=== PATIENT | female | born 1965 | race Caucasian/White ===

== ENCOUNTER 2023-07-02 21:16 | Emergency (ER) | payer MEDICARE, SELFPAY ==
[2023-07-02 21:17] VITALS: BP 129/100; PULSE 157; RESP 18; TEMP 36.9; O2SAT 96; BMI 29.1
[2023-07-02] MEDS: ONDANSETRON 4 MG RAPDIS TABLET SL (21:30)
[2023-07-02] MEDS: LORAZEPAM 1 MG TABLET PO ×2 (21:30→21:43)
--- NOTE | 2023-07-02 21:45 | ED.ANXIETY1 ---
HPI - Anxiety General Chief Complaint: Anxiety Stated Complaint: ANXIETY/SITUATIONAL Time Seen by Provider: 07/02/23 21:23 Source: patient Mode of arrival: walk-in Limitations: no limitations History of Present Illness HPI narrative: 57-year-old female presents with a chief complaint of acute anxiety. Just prior to arrival patient had overdosed and . She is crying. She needs something for her nerves. Family members are with her. She has no suicidal homicidal ideation. Related Data Home Medications Medication Instructions Recorded Confirmed amlodipine 5 mg tablet 5 mg PO DAILY 07/02/23 07/02/23 duloxetine 20 mg capsule,delayed 20 mg PO DAILY 07/02/23 07/02/23 release estradiol 1 mg tablet 1 mg PO DAILY 07/02/23 07/02/23 lamotrigine 200 mg tablet 200 mg PO BID 07/02/23 07/02/23 losartan 100 mg tablet 100 mg PO DAILY 07/02/23 07/02/23 phenazopyridine 200 mg tablet 200 mg PO DAILY 07/02/23 07/02/23 quetiapine 100 mg tablet 100 mg PO DAILY 07/02/23 07/02/23 rosuvastatin 10 mg tablet 10 mg PO DAILY 07/02/23 07/02/23 Previous Rx's Medication Instructions Recorded lorazepam 1 mg tablet (Ativan) 1 mg PO Q8H PRN anxiety #14 tabs 07/02/23 ondansetron 4 mg disintegrating 4 mg PO Q8H 3 days #9 tabs 07/02/23 tablet Allergies Allergy/AdvReac Type Severity Reaction Status Date / Time No Known Drug Allergies Allergy Verified 07/02/23 21:24 Review of Systems ROS Narrative All Systems are negative except as noted/marked.All systems reviewed and otherwise negative Exam Narrative Exam Narrative: Nurses note and vital signs reviewed and patient is not hypoxic. General: The patient appears distressed and crying Skin: Warm, dry, no pallor noted. There is no rash noted. Head: Normocephalic, atraumatic Eye: Normal conjunctiva, no drainage, EOMI. PERRL Ears, Nose, Mouth, and Throat: oral mucosa is moist. Nares patent. Mouth without vesicles. Ear canals patent. Tm's without Erythema Cardiovascular: Regular Rate and Rhythm Respiratory: Patient is in no distress, no accessory muscle use, lungs are clear to auscultation, no wheezing, rales or rhonchi Musculoskeletal: The patient has no evidence of calf tenderness, no pitting edema, symmetrical pulses noted bilaterally Neurological: A&O x4, normal speech Psychiatric: Cooperative, complete thoughts , denies suicide or homicide ideation Constitutional Vital Signs, click to edit/add: Last Vital Signs Temp 98.5 F 07/02/23 21:17 Pulse 157 H 07/02/23 21:17 Resp 18 07/02/23 21:17 BP 129/100 H 07/02/23 21:17 Pulse Ox 96 07/02/23 21:17 O2 Del Method Room Air 07/02/23 21:17 Course Vital Signs Vital signs: Vital Signs Temperature 98.5 F 07/02/23 21:17 Pulse Rate 157 H 07/02/23 21:17 Respiratory Rate 18 07/02/23 21:17 Blood Pressure 129/100 H 07/02/23 21:17 Pulse Oximetry 96 07/02/23 21:17 Oxygen Delivery Method Room Air 07/02/23 21:17 Temperature 98.5 F 07/02/23 21:17 Pulse Rate 157 H 07/02/23 21:17 Respiratory Rate 18 07/02/23 21:17 Blood Pressure 129/100 H 07/02/23 21:17 Pulse Oximetry 96 07/02/23 21:17 Oxygen Delivery Method Room Air 07/02/23 21:17 MDM - Anxiety Medical Records Attestation: I reviewed the patient's medical records. Medical records narrative: presented to the emergency room with acute anxiety. She just found out prior to arrival with her son who from an overdose. Medicated here with Zofran and one Ativan. Discharge home with Ativan to go to [facility]. Patient was also given a Transfer To hotline. She is fully supportive home and wishes to be home with her family. She is not suicidal or homicidal Discharge Plan Discharge Chief Complaint: Anxiety Clinical Impression: Acute anxiety Patient Disposition: Home, Self-Care Time of Disposition Decision: 21:36 Condition: Good Prescriptions / Home Meds: New lorazepam [Ativan] 1 mg tablet 1 mg PO Q8H PRN (Reason: anxiety) Qty: 14 0RF ondansetron 4 mg tablet,disintegrating 4 mg PO Q8H 3 Days Qty: 9 0RF No Action amlodipine 5 mg tablet 5 mg PO DAILY duloxetine 20 mg capsule,delayed release(DR/EC) 20 mg PO DAILY estradiol 1 mg tablet 1 mg PO DAILY lamotrigine 200 mg tablet 200 mg PO BID losartan 100 mg tablet 100 mg PO DAILY phenazopyridine 200 mg tablet 200 mg PO DAILY quetiapine 100 mg tablet 100 mg PO DAILY rosuvastatin 10 mg tablet 10 mg PO DAILY Instructions: Anxiety (ED) Stand Alone Forms: Portal Instructions Referrals: MOISÉS TOMLIN [Primary Care Provider] - 1 week
== END 2023-07-02 21:48 | disposition home or self-care (01) ==
PROVIDERS: Emergency Provider Student in an Organized Health Care Education/Training Program; PCP Family Medicine
DX: F41.9 Anxiety disorder, unspecified (principal); Z79.899 Other long term (current) drug therapy
CPT/HCPCS: 99283